=== PATIENT | male | born 1995 | race African-American/Black ===

== ENCOUNTER 2017-03-07 01:14 | Emergency (ER) | payer OTHER ==
[2017-03-07 01:28] VITALS: BP 152/84
[2017-03-07] MEDS ORDERED: LIDOCAINE 1% 2 ML VIAL ONE (01:40)
--- NOTE | 2017-03-07 02:14 | ED Physician Documentation ---
History of Present Illness - Stated complaint Stated Complaint: LIP LAC - Chief complaint Chief Complaint: Laceration - History obtained from History obtained from: Patient, Family - History of Present Illness Timing: Today - Additonal information Additional information: 21 y/o male drinking at a bar picked up a piece of broken glass that he mistook for ice and tried to take a bite of it has lacerated his lower lip. Review of Systems Constitutional: denies: Fever Throat: denies: Dental pain / toothache, Sore throat Skin: reports: Laceration (s) PD PAST MEDICAL HISTORY - Past Medical History Past Medical History: No Cardiovascular: None Respiratory: None Neuro: None Endocrine/Autoimmune: None GI: None : None HEENT: None Psych: None Musculoskeletal: None Derm: None - Past Surgical History Past Surgical History: No - Allergies Allergies/Adverse Reactions: Allergies Allergy/AdvReac Type Severity Reaction Status Date / Time No Known Drug Allergies Allergy Verified 03/07/17 01:27 - Social History Does the pt smoke?: No Smoking Status: Never smoker Does the pt drink ETOH?: Yes Does the pt have substance abuse?: No - Immunizations Immunizations are current?: Yes - POLST Patient has POLST: No PD ED PE NORMAL - Vitals Vital signs reviewed: Yes (hypertensive) - General General: Alert and oriented X 3, No acute distress, Well developed/nourished - HEENT HEENT: PERRL, EOMI, Other (There is a 2.5cm laceration to the right lower lip that does not involve the anastacio border. ) - Neck Neck: Supple, no meningeal sign - Respiratory Respiratory: No respiratory distress - Derm Derm: Normal color, Warm and dry, No rash - Extremities Extremities: No deformity, No edema - Neuro Neuro: No motor deficit, No sensory deficit Eye Opening: Spontaneous Motor: Obeys Commands Verbal: Oriented GCS Score: 15 - Psych Psych: Normal mood, Normal affect Results - Vitals Vitals: Oxygen O2 Source Room air Procedures - Laceration (location) lower lip right Length in cm: 2.5 Wound type: Linear, Clean Neurovascular status: Sensory intact, Motor intact, Vascular intact Anesthesia: Lidocaine 1% Wound Preparation: Irrigated copiously NS, Wound explored, To the base Skin layer closure: Nylon, Interrupted, Size #-0 - enter number (6-0), Sutures - enter # (6) Other: Patient tolerated well, No complications, Neurovascular intact, Tetanus UTD PD MEDICAL DECISION MAKING - ED course Complexity details: considered differential, d/w patient, d/w family Departure - Departure Disposition: 01 Home, Self Care Clinical Impression: Lip laceration Qualifiers: Encounter type: initial encounter Qualified Code(s): S01.511A - Laceration without foreign body of lip, initial encounter Condition: Stable Instructions: ED Laceration Facial Sutr Tape Follow-Up: [facility] [Provider Group] Comments: sutures out in 6 days Discharge Date/Time: 03/07/17 02:20
== END 2017-03-07 02:20 | disposition home or self-care (01) ==
LOC: ED 01:14
DX: S01.511A Laceration without foreign body of lip, initial encounter (principal); W25.XXXA Contact with sharp glass, initial encounter
CPT/HCPCS: 12011; 99282

== ENCOUNTER 2017-09-22 08:42 | Emergency (ER) | payer OTHER ==
[2017-09-22 09:48] LABS: BASOPHILS % (AUTO) 0.6 %; EOSINOPHILS # (AUTO) 0.1 10^3/uL (0.0-0.7); EOSINOPHILS % (AUTO) 1.1 %; HGB - HEMOGLOBIN 14.5 g/dL (14.0-18.0); LYMPHOCYTES # (AUTO) 2.5 10^3/uL (1.5-3.5); LYMPHOCYTES % (AUTO) 44.2 %; MEAN CORPUSCULAR HEMOGLOBIN 30.9 pg (27.0-31.0); MEAN CORPUSCULAR HGB CONC 33.6 g/dL (32.0-36.0); MEAN CORPUSCULAR VOLUME 92.2 fL (80.0-94.0); MEAN PLATELET VOLUME 6.8 fL (7.4-11.4); MONOCYTES # (AUTO) 0.4 10^3/uL (0.0-1.0); MONOCYTES % (AUTO) 6.6 %; NEUTROPHILS # (AUTO) 2.6 10^3/uL (1.5-6.6); NEUTROPHILS % (AUTO) 47.5 %; PLT - PLATELET COUNT 241 10^3/uL (130-450); RED BLOOD COUNT 4.69 10^6/uL (4.70-6.10); RED CELL DISTRIBUTION WIDTH 12.6 % (12.0-15.0); WHITE BLOOD COUNT 5.6 x10^3/uL (4.8-10.8)
[2017-09-22 10:04] LABS: ALBUMIN 4.1 g/dL (3.2-5.5); ALBUMIN/GLOBULIN RATIO 1.5 (1.0-2.2); BILIRUBIN,TOTAL 0.9 mg/dL (0.2-1.0); CALCIUM 9.1 mg/dL (8.5-10.3); TOTAL PROTEIN 6.9 g/dL (6.7-8.2)
--- NOTE | 2017-09-22 10:21 | XRAY Report ---
Procedure Date: 09/22/2017 Accession Number: [id number] / [id number] Procedure: XR - Chest 2 View X-Ray CPT Code: 79345 FULL RESULT: EXAM: CHEST RADIOGRAPHY EXAM DATE: 09/22/2017 10:10 AM. CLINICAL HISTORY: Chest pain. COMPARISON: None. TECHNIQUE: 2 views. FINDINGS: Lungs/Pleura: Left upper lobe 11 mm nodule. No pleural effusion. No pneumothorax. Normal volumes. Mediastinum: Heart and mediastinal contours are unremarkable. Other: None. IMPRESSION: Left upper lobe 11 mm nodule recommend chest CT [facility]
--- NOTE | 2017-09-22 10:39 | ED Physician Documentation ---
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 no fhx cardiac or vascular dz Review of Systems Constitutional: denies: Fever Cardiac: reports: Chest pain / pressure Respiratory: denies: Dyspnea GI: denies: Abdominal Pain, Nausea, Vomiting, Diarrhea Musculoskeletal: denies: Extremity swelling Endocrine: denies: Easy bruising / bleeding Immunocompromised: denies: Immunocompromised PD PAST MEDICAL HISTORY - Past Medical History Past Medical History: No Cardiovascular: None Respiratory: None Endocrine/Autoimmune: None GI: None : None HEENT: None Psych: None Musculoskeletal: None Derm: None - Past Surgical History Past Surgical History: No - Present Medications Home Medications: Ambulatory Orders Medication Instructions Recorded Confirmed raNITIdine [Zantac] 150 mg PO BID #60 tablet 09/22/17 - Allergies Allergies/Adverse Reactions: Allergies Allergy/AdvReac Type Severity Reaction Status Date / Time No Known Drug Allergies Allergy Verified 09/22/17 09:03 - Social History Does the pt smoke?: No Smoking Status: Never smoker Does the pt drink ETOH?: Yes Does the pt have substance abuse?: No - Immunizations Immunizations are current?: Yes - POLST Patient has POLST: No PD ED PE NORMAL - Vitals Vital signs reviewed: Yes - General General: Alert and oriented X 3 - Cardiac Cardiac: RRR, No murmur - Respiratory Respiratory: No respiratory distress, Clear bilaterally - Abdomen Abdomen: Soft, Non tender - Extremities Extremities: No tenderness to palpate, No edema, No calf tenderness / cord - Neuro Neuro: Alert and oriented X 3 Results - Vitals Vitals: Vital Signs - 24 hr 09/22/17 09/22/17 09:00 12:05 Temperature 36.5 C 36.3 C L Heart Rate 60 55 L Respiratory 14 18 Rate Blood Pressure 123/80 128/84 H O2 Saturation 100 100 Oxygen O2 Source Room air - EKG (time done) 0847 Rate: Rate (enter#) (59) Rhythm: NSR Theodore: RAD Intervals: Normal OK Ischemia: Normal ST segments - Labs Labs: Laboratory Tests 09/22/17 09/22/17 09/22/17 09:41 09:41 09:41 WBC 5.6 RBC 4.69 L Hgb 14.5 Hct 43.3 MCV 92.2 MCH 30.9 MCHC 33.6 RDW 12.6 Plt Count 241 MPV 6.8 L Neut # (Auto) 2.6 Lymph # (Auto) 2.5 [place] # (Auto) 0.4 Eos # (Auto) 0.1 Baso # (Auto) 0.0 Absolute Nucleated RBC 0.00 Nucleated RBC % 0.0 D-Dimer < 200.0 L Sodium Potassium Chloride Carbon Dioxide Anion Gap BUN Creatinine Estimated GFR (MDRD) Glucose Calcium Total Bilirubin AST ALT Alkaline Phosphatase Troponin I < 0.04 Total Protein Albumin Globulin Albumin/Globulin Ratio Lipase 09/22/17 09:41 WBC RBC Hgb Hct MCV MCH MCHC RDW Plt Count MPV Neut # (Auto) Lymph # (Auto) [place] # (Auto) Eos # (Auto) Baso # (Auto) Absolute Nucleated RBC Nucleated RBC % D-Dimer Sodium 138 Potassium 4.1 Chloride 103 Carbon Dioxide 30 Anion Gap 5.0 L BUN 13 Creatinine 1.0 Estimated GFR (MDRD) 114 Glucose 102 H Calcium 9.1 Total Bilirubin 0.9 AST 25 ALT 35 Alkaline Phosphatase 115 Troponin I Total Protein 6.9 Albumin 4.1 Globulin 2.8 Albumin/Globulin Ratio 1.5 Lipase 21 L - Rads (name of study) CXR Radiology: See rad report (ADEOLA nodule - rec CT) CTPA Radiology: See rad report (calcified L hilar node c/w old granulomatous disease , no mass, no PE, no dissection) PD MEDICAL DECISION MAKING - ED course ED course: hx from pt 21 y/o ,m AD [place] no recent travel to ED with sharp chest pain that radiates straight back into his upper back 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 no fever cough no abd pain no leg swelling 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 no fhx cardiac or vascular dz trop neg after sx for 12 hr or so rles out ACS pain was sharp and through to the back and also rad rec CT 2/2 L lung mass - so got CTA unfortunately that was a very long process - ordered at 1056 and not read until 1415 - but thankfully neg pt feeling better after toradol will dc - Sepsis Event Vital Signs: Vital Signs - 24 hr 09/22/17 09/22/17 09:00 12:05 Temperature 36.5 C 36.3 C L Heart Rate 60 55 L Respiratory 14 18 Rate Blood Pressure 123/80 128/84 H O2 Saturation 100 100 Oxygen O2 Source Room air Departure - Departure Disposition: Home, Self Care Clinical Impression: Chest pain Qualifiers: Chest pain type: unspecified Qualified Code(s): R07.9 - Chest pain, unspecified Condition: Good Instructions: ED Chest Pain NonCardiac Follow-Up: [facility] [Provider Group] (for a recheck and duty status) Prescriptions: raNITIdine [Zantac] 150 mg PO BID #60 tablet Comments: Your EKG and labs indicate you have not had a heart attack The CT scan did not show an aneurysm or tear of your aorta. Also no blood clots or infection in your lung. The chest xray showed a nodule but the CT showed this area in greater detail and it is a calcified lymph node likely left over from a prior infection - you don't need to do anything about that other than get your periodic TB screening though Get Me Listed and to remember the results if anyone see it again on future chest xrays so you don't have to get another CT scan I am not certain what did cause your pain but given the reassuring work up I think it is safe for you to go home and take motrin and tylenol as needed for the pain. I also prescribed zanatc because sometimes acid reflux can cause similar pain. Follow up at [employer] [facility] before the weekend for a recheck - light duty / no PT or heavy exertion until cleared by medical to return to duty
[2017-09-22] MEDS ORDERED: KETOROLAC 60 MG/2 ML VIAL IVP STA (10:56)
[2017-09-22] MEDS ORDERED: SODIUM CHLORIDE 0.9% 1,000 ML IV ONE (10:56)
[2017-09-22] MEDS ORDERED: IOPAMIDOL-300 100 ML VIAL ONE (11:23)
[2017-09-22] MEDS ORDERED: IOPAMIDOL-300 100 ML VIAL IVP ONE (11:50)
--- NOTE | 2017-09-22 14:14 | CT Report ---
Procedure Date: 09/22/2017 Accession Number: [id number] / [id number] Procedure: CT - Chest Angio (PE) CPT Code: FULL RESULT: EXAM: CT ANGIOGRAM CHEST EXAM DATE: 09/22/2017 11:31 AM. CLINICAL HISTORY: Cp rad to back. COMPARISON: None. TECHNIQUE: Routine helical imaging was performed through the chest in the pulmonary arterial phase. IV Contrast: ISOVUE 300 80mL. Reconstructions: Coronal 3-D MIP reconstructions.Sagittal and coronal. In accordance with CT protocol optimization, one or more of the following dose reduction techniques were utilized for this exam: automated exposure control, adjustment of mA and/or KV based on patient size, or use of iterative reconstructive technique. FINDINGS: Pulmonary Arteries: Diagnostic quality: Adequate through the segmental arteries. Negative for acute pulmonary embolism. The main pulmonary artery is normal in size. Lungs/Pleura: There is a calcified granuloma in the left lower lobe. There are calcified left hilar lymph nodes compatible with old granulomatous disease. No evidence of pneumonia or edema. Negative for pleural effusion and pneumothorax. Central airways are patent. Mediastinum: The heart size is normal. There is no pericardial effusion. No lymphadenopathy. Thoracic Aorta: The aorta is non- opacified with contrast, timing related with exam performed for evaluation of pulmonary arteries. No thoracic aortic aneurysm. Upper Abdomen: Unremarkable. Other: None. IMPRESSION: 1. Negative for pulmonary embolism. 2. Old granulomatous disease in the left lower lobe. 3. No thoracic aortic aneurysm. 4. No evidence of pneumonia or edema. RAD[facility]
[2017-09-22 15:00] VITALS: BP 142/81
== END 2017-09-22 15:00 | disposition home or self-care (01) ==
LOC: ED 08:42
DX: R07.9 Chest pain, unspecified (principal)
CPT/HCPCS: 36415; 71046; 71275; 80053; 83690; 84484; 85025; 85379; 93005; 96361; 96374; 99283; Q9967

== ENCOUNTER 2018-02-09 12:16 | Emergency (ER) | payer OTHER ==
--- NOTE | 2018-02-09 15:32 | ED Physician Documentation ---
PD HPI URI - Stated complaint Stated Complaint: THROAT PX - Chief complaint Chief Complaint: Heent - History obtained from History obtained from: Patient - History of Present Illness Timing - onset: How many weeks ago (1) Timing duration: Weeks (1) Timing details: Gradual onset, Still present (worse the past 2-3 days, with now feeling lump to side of throat and hurts with swallowing.) Associated symptoms: Fever, Chills, Sore throat, Swollen nodes. No: Nasal congestion, Dry cough Similar symptoms before: Has not had sx before Recently seen: Not recently seen Review of Systems Constitutional: reports: Fever, Chills, Myalgias Nose: denies: Rhinorrhea / runny nose, Congestion Throat: reports: Sore throat, Swollen tonsils Cardiac: denies: Chest pain / pressure, Palpitations Respiratory: denies: Dyspnea, Cough GI: denies: Abdominal Pain, Nausea, Vomiting, Diarrhea Neurologic: denies: Altered mental status, Headache Immunocompromised: denies: Immunocompromised PD PAST MEDICAL HISTORY - Past Medical History Cardiovascular: None Respiratory: None Endocrine/Autoimmune: None GI: None : None HEENT: None Psych: None Musculoskeletal: None Derm: None - Past Surgical History Past Surgical History: No - Present Medications Home Medications: Ambulatory Orders Medication Instructions Recorded Confirmed Cephalexin [Keflex] 500 mg PO Q6H #28 capsule 02/09/18 Dexamethasone [Decadron] 4 mg PO DAILY #5 tablet 02/09/18 Diclofenac Sodium 2 drops EACHEYE QID #1 bottle 02/09/18 Tramadol HCl 50 mg PO Q6H PRN #15 tablet 02/09/18 - Allergies Allergies/Adverse Reactions: Allergies Allergy/AdvReac Type Severity Reaction Status Date / Time No Known Drug Allergies Allergy Verified 02/09/18 12:37 - Social History Does the pt smoke?: No Smoking Status: Never smoker Does the pt drink ETOH?: Yes Does the pt have substance abuse?: No - Immunizations Immunizations are current?: Yes - POLST Patient has POLST: No PD ED PE NORMAL - Vitals Vital signs reviewed: Yes - General General: Alert and oriented X 3, No acute distress, Well developed/nourished - HEENT HEENT: No: Pharynx benign (there is redness with swelling and edema around right tonsil, with fullness of tissue but does not appear bulging. No deviation of the tonsil per se. ) - Neck Neck: Supple, no meningeal sign, Other (tender anterior adenopathy ) - Cardiac Cardiac: RRR, No murmur - Respiratory Respiratory: Clear bilaterally - Abdomen Abdomen: Soft, Non tender - Derm Derm: Normal color, Warm and dry - Neuro Neuro: Alert and oriented X 3, No motor deficit. No: Normal speech (slight garbling of the phonation. ) Results - Vitals Vitals: Oxygen O2 Source Room air - Labs Labs: Microbiology 02/09/18 12:35 Group A Strep Throat Culture - Final Throat Beta Hemolytic Strep Group C Laboratory Tests 02/09/18 12:35 Group A Strep Rapid Negative Departure - Departure Disposition: 01 Home, Self Care Clinical Impression: Peritonsillar cellulitis Condition: Stable Record reviewed to determine appropriate education?: Yes Instructions: ED Peritonsillar Infec Abx No I andD Follow-Up: Justine Spears MD [Primary Care Provider] - Prescriptions: Cephalexin [Keflex] 500 mg PO Q6H #28 capsule Dexamethasone [Decadron] 4 mg PO DAILY #5 tablet Diclofenac Sodium 2 drops EACHEYE QID #1 bottle Tramadol HCl 50 mg PO Q6H PRN #15 tablet PRN Reason: Pain Comments: Drink lots of fluids. And does look like an infection around the tonsil on that side. This is more often bacterial though not commonly group A strep. We treated with antibiotics cephalexin 4 times a day for the next week. Decadron steroid for inflammation daily for the next 5 days. Add Tylenol or tramadol if needed for pains. Recheck if not improving over the next couple of days. Discharge Date/Time: 02/09/18 16:18
[2018-02-09 15:36] VITALS: BP 138/92
[2018-02-09] MEDS ORDERED: DEXAMETHASONE 10 MG/ML VIAL PO STA (15:55)
[2018-02-09] MEDS ORDERED: cephALEXin 250 MG CAPSULE PO STA (15:55)
[2018-02-09] MEDS ORDERED: NAPROXEN 250 MG TABLET PO STA (15:55)
== END 2018-02-09 16:18 | disposition home or self-care (01) ==
LOC: ED 12:16
DX: J36 Peritonsillar abscess (principal)
CPT/HCPCS: 87070; 87430; 99283

== ENCOUNTER 2018-09-10 23:06 | Emergency (ER) | payer OTHER ==
[2018-09-10] MEDS ORDERED: LIDOCAINE 1% 2 ML VIAL MC ONE (23:39)
[2018-09-10] MEDS ORDERED: cefTRIAXone 250 MG VIAL IM STA (23:39)
[2018-09-10] MEDS ORDERED: AZITHROMYCIN 250 MG TABLET PO STA (23:39)
--- NOTE | 2018-09-10 23:42 | ED Physician Documentation ---
PD HPI MALE - Stated complaint Stated Complaint: MALE - Chief complaint Chief Complaint: General - History obtained from History obtained from: Patient - History of Present Illness Timing - onset: How many days ago (5) Timing - duration: Days (5) Timing - details: Gradual onset, Still present Associated symptoms: Dysuria. 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 He does not have a discharge he does have some inflammation to the urethra at the tip of the penis. He states that he does not have suspicion of STD. He states it is been more than 1 month from intercourse. He has not had symptoms previously. He denies any bladder symptoms he denies any urgency frequency or foul smell to the urine. He has not had fever back pain or nausea. Review of Systems Constitutional: denies: Fever, Chills, Myalgias Eyes: denies: Decreased vision Ears: denies: Ear pain Nose: denies: Congestion Throat: denies: Sore throat Respiratory: denies: Cough GI: denies: Abdominal Pain, Vomiting : reports: Dysuria. denies: Frequency, Incontinent, Hematuria, Discharge, Testicular pain, Testicular mass Skin: denies: Rash Musculoskeletal: denies: Neck pain, Back pain, Extremity pain PD PAST MEDICAL HISTORY - Past Medical History Past Medical History: No Cardiovascular: None Respiratory: None Endocrine/Autoimmune: None GI: None : None HEENT: None Psych: None Musculoskeletal: None Derm: None - Past Surgical History Past Surgical History: No - Present Medications Home Medications: Ambulatory Orders Medication Instructions Recorded Confirmed Cephalexin [Keflex] 500 mg PO Q6H #28 capsule 02/09/18 Diclofenac Sodium 2 drops EACHEYE QID #1 bottle 02/09/18 Tramadol HCl 50 mg PO Q6H PRN #15 tablet 02/09/18 dexAMETHasone [Decadron] 4 mg PO DAILY #5 tablet 02/09/18 - Allergies Allergies/Adverse Reactions: Allergies Allergy/AdvReac Type Severity Reaction Status Date / Time No Known Drug Allergies Allergy Verified 09/10/18 23:10 - Social History Does the pt smoke?: No Smoking Status: Never smoker Does the pt drink ETOH?: Yes ETOH Use: Beer Does the pt have substance abuse?: No - Immunizations Immunizations are current?: Yes - POLST Patient has POLST: No PD ED PE NORMAL - Vitals Vital signs reviewed: Yes (hypertensive ) - General General: Alert and oriented X 3, No acute distress, Well developed/nourished - HEENT HEENT: Atraumatic, PERRL, EOMI - Respiratory Respiratory: No respiratory distress - Male Male : Other (There is mild inflammation to the urethra at the opening. There is no bleeding, discharge or weeping. There are no sores to the penis or perineum. The testes are non-tender without mass and without tenderness to the epididymis and there is no inguinal lymphadenopathy. 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, No motor deficit, No sensory deficit, Normal speech Eye Opening: Spontaneous Motor: Obeys Commands Verbal: Oriented GCS Score: 15 - Psych Psych: Normal mood, Normal affect Results - Vitals Vitals: Vital Signs - 24 hr 09/10/18 23:08 Temperature 36.0 C L Heart Rate 77 Respiratory 16 Rate Blood Pressure 140/93 H O2 Saturation 99 Oxygen O2 Source Room air - Labs Labs: Laboratory Tests 09/10/18 23:20 Urine Color YELLOW Urine Clarity CLEAR Urine pH 6.0 Ur Specific [place] 1.010 Urine Protein NEGATIVE Urine Glucose (UA) NEGATIVE Urine Ketones NEGATIVE Urine Occult Blood NEGATIVE Urine Nitrite NEGATIVE Urine Bilirubin NEGATIVE Urine Urobilinogen 0.2 (NORMAL) Ur Leukocyte Esterase NEGATIVE Ur Microscopic Review NOT INDICATED Urine Culture Comments NOT INDICATED PD MEDICAL DECISION MAKING - ED course Complexity details: reviewed results, considered differential, d/w patient ED course: 22-year-old male with urethritis and some inflammation to the urethra at the tip of the penis.Urine specimen is obtained and sent for DNA for chlamydia and Neisseria. The patient is treated with Rocephin 250 mg IM and azithromycin 1 g p.o. Departure - Departure Disposition: 01 Home, Self Care Clinical Impression: Urethritis, unspecified Condition: Stable Instructions: ED Urethritis Infec Vs Inflam Male, ED STD Male Treated Follow-Up: Justine Spears MD [Primary Care Provider] - Comments: Today there appears to be some inflammation to the urethra and you have been treated for STD. There are other causes of urethritis and further treatment may be indicated if you do not have resolution of your symptoms. Follow-up with your primary care doctor for results of your testing by the beginning of next week.
[2018-09-10 23:50] LABS: BILIRUBIN,URINE NEGATIVE (NEGATIVE); GLUCOSE, URINE (UA) NEGATIVE (NEGATIVE); KETONES,URINE (UA) NEGATIVE (NEGATIVE); LEUKOCYTE ESTERASE, URINE NEGATIVE (NEGATIVE); NITRITE,URINE NEGATIVE (NEGATIVE); OCCULT BLOOD,URINE NEGATIVE (NEGATIVE); PROTEIN,URINE NEGATIVE (NEGATIVE); UROBILINOGEN,URINE 0.2 (NORMAL) E.U./dL (NORMAL)
[2018-09-10 23:52] LABS: CLARITY,URINE CLEAR (CLEAR)
[2018-09-11 00:16] VITALS: BP 145/68
== END 2018-09-11 00:15 | disposition home or self-care (01) ==
LOC: ED 23:06
DX: N34.2 Other urethritis (principal)
CPT/HCPCS: 81003; 87491; 87591; 96372; 99282; 99283; A9270; 81001; 87086; 87661